=== PATIENT | male | born 2000 | race Caucasian/White ===

== ENCOUNTER 2021-09-30 01:58 | Emergency (ER) | payer OTHER ==
[~2021-09-30 01:58] MED LIST: IBUPROFEN600 MG PO
[2021-09-30 03:41] LABS: HEMOGLOBIN 15.3 gm/dl (14.0-17.5); RED BLOOD COUNT 4.97 M/UL (4.20-5.50); WHITE BLOOD COUNT 11.8 K/UL (4.5-11.0)
[2021-09-30 04:08] LABS: BUN/CREATININE RATIO 15 (0-10)
== END 2021-09-30 05:10 | disposition home or self-care (01) ==
LOC: ER1 01:58
PROVIDERS: Family Medicine
DX: R07.89 Other chest pain (principal); R51.9 Headache, unspecified; F17.290 Nicotine dependence, other tobacco product, uncomplicated
CPT/HCPCS: 71045; 80048; 82550; 82553; 84484; 85025; 93005; 99285